=== PATIENT | male | born 1985 | race African-American/Black ===

== ENCOUNTER 2019-02-05 17:34 | Emergency (ER) | payer OTHER ==
[~2019-02-05] VITALS: Ht 170.2 cm; Wt 83.9 kg
[2019-02-05 19:27] VITALS: BP 131/75
== END 2019-02-05 19:28 | disposition home or self-care (01) ==
LOC: ER 17:34
DX: S61.211A Laceration without foreign body of left index finger without damage to nail, initial encounter (principal); W26.0XXA Contact with knife, initial encounter; Y93.89 Activity, other specified; Y92.89 Other specified places as the place of occurrence of the external cause; Y99.8 Other external cause status